=== PATIENT | female | born 1970 ===

== ENCOUNTER 2023-05-19 09:45 | Outpatient (AMB) | payer OTHER, SELFPAY ==
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
[2023-05-19 09:55] VITALS: BP 141/77; PULSE 71; O2SAT 98; BMI 24.9
== END 2023-05-19 10:27 | disposition home or self-care (01) ==
PROVIDERS: PCP Internal Medicine; Visit Provider Nurse Practitioner Family
DX: M25.551 Pain in right hip (principal); M96.1 Postlaminectomy syndrome, not elsewhere classified; M51.36 Other intervertebral disc degeneration, lumbar region; M81.0 Age-related osteoporosis without current pathological fracture; M54.41 Lumbago with sciatica, right side; G89.29 Other chronic pain; M41.80 Other forms of scoliosis, site unspecified
CPT/HCPCS: 99204; 99214

== ENCOUNTER 2023-05-19 09:45 | Outpatient (REF) | payer OTHER, SELFPAY ==
--- NOTE | ~2023-05-19 | XR_ITS ---
EXAMINATION: XR BILATERAL HIPS WITH AP PELVIS CLINICAL INFORMATION: Right hip pain COMPARISON: None available. TECHNIQUE: AP view of the pelvis and single views of each hip were obtained. FINDINGS: Mineralization is normal. There is no fracture or dislocation. The hip joint spaces are preserved and symmetric, without arthritic change. The periarticular soft tissues appear unremarkable. Note is made of lumbar rotatory scoliosis and degenerative disc and facet disease. There are postsurgical changes at the lumbosacral junction with probable laminectomy at L5, not completely evaluated on this examination. XR/XR hip BI w PEL1V IMPRESSION: No abnormality is seen in the hips.
== END 2023-05-19 09:46 | disposition home or self-care (01) ==
LOC: HO.XRAY 09:45
PROVIDERS: PCP Internal Medicine; Visit Provider Nurse Practitioner Family
DX: M25.551 Pain in right hip (principal); M96.1 Postlaminectomy syndrome, not elsewhere classified; M51.36 Other intervertebral disc degeneration, lumbar region; M81.0 Age-related osteoporosis without current pathological fracture; M54.41 Lumbago with sciatica, right side; G89.29 Other chronic pain; M41.80 Other forms of scoliosis, site unspecified; Z79.899 Other long term (current) drug therapy
CPT/HCPCS: 73521; 99202